=== PATIENT | female | born 1970 | race Caucasian/White ===

== ENCOUNTER 2018-04-12 12:10 | Day surgery (SDC) | payer OTHER ==
[2018-04-06 15:57] VITALS: BMI 45.1
[2018-04-12] MEDS ORDERED: MIDAZOLAM HCL 2 MG/2 ML SINGLE DOSE VIAL ONE (13:53)
[2018-04-12] MEDS ORDERED: PROPOFOL 20 ML ONE ×2 (13:53→13:54)
[2018-04-12] MEDS ORDERED: KETOROLAC TROMETHAMINE 30 MG/1 ML VIAL ONE (13:55)
[2018-04-12] MEDS ORDERED: DEXAMETHASONE SOD PHOSPHATE 4 MG/1 ML VIAL ONE (13:55)
[2018-04-12] MEDS ORDERED: ceFAZolin SODIUM 1 GM VIAL ONE (13:55)
[2018-04-12] MEDS ORDERED: ONDANSETRON 4 MG/2 ML VIAL ONE ×2 (13:55→15:12)
[2018-04-12] MEDS ORDERED: BUPIVACAINE HCL/PF 2.5 MG/ML - 30 ML VIAL IJ ONE (14:03)
[2018-04-12] MEDS ORDERED: LIDOCAINE HCL 2% (20ML MULTI-DOSE VIAL) NR ONE (14:03)
[2018-04-12] MEDS ORDERED: oxyCODONE HCL 5 MG TABLET PO PRN (15:11)
[2018-04-12] MEDS ORDERED: ONDANSETRON 4 MG/2 ML VIAL IVPUSH PRN (15:11)
[2018-04-12] MEDS ORDERED: LACTATED RINGERS SOLUTION 1,000 ML IV SCH (15:15)
[2018-04-12] MEDS ORDERED: PROMETHAZINE HCL 25 MG/1 ML VIAL ONE (15:43)
[2018-04-12] MEDS ORDERED: PROMETHAZINE HCL 25 MG/1 ML VIAL IVPUSH ONE (15:46)
[2018-04-12] MEDS ORDERED: PROMETHAZINE HCL 25 MG/1 ML VIAL IVPUSH PRN (15:47)
[2018-04-12 17:45] VITALS: TEMP 97.8
[2018-04-12 17:46] VITALS: BP 124/74; PULSE 65
--- NOTE | 2018-04-13 09:02 | OP ---
DATE OF OPERATION: 04/12/2018 PREOPERATIVE DIAGNOSIS: Right thumb ulnar collateral ligament tear. POSTOPERATIVE DIAGNOSIS: Right thumb ulnar collateral ligament tear. OPERATIVE PROCEDURE: Repair, right thumb ulnar collateral ligament tear. SURGEON: Duane Cross MD MELTING SUPERVISOR: MICHAEL Cortez ANESTHESIA: General. COMPLICATIONS: None. ESTIMATED BLOOD LOSS: Minimal. INDICATION FOR PROCEDURE: The patient is a 48-year-old female with the above finding indicated for operative treatment. Risks, benefits and alternatives were discussed with the patient at length. Proper informed consent was obtained. PROCEDURE: After proper identification of patient and correct operative site patient was brought to the operating room and placed supine on the table, prominences well padded. General anesthesia was provided by the anesthesiologist. Right upper extremity was prepped and draped in the usual sterile fashion. Well-padded tourniquet was placed over the sterile prep. Esmarch bandage to exsanguinate right upper extremity. The tourniquet was inflated to 250 mmHg. A curvilinear incision made over the thumb metacarpophalangeal joint on the ulnar aspect. Blunt dissection was performed down to the extensor mechanism and adductor aponeurosis. Neurovascular structures were identified and carefully protected. At this time a Stener lesion was noted. The adductor aponeurosis divided along its dorsal border and elevated off the radial ulnar aspect of the thumb metacarpophalangeal joint. The ulnar collateral ligament was found to be completely ruptured. The ends were freshened and a 3-0 FiberWire suture along with a SwiveLock anchor was used to repair the ligament down to the base of the thumb proximal phalanx. Using the FiberTape that was also on the SwiveLock anchor an internal brace reinforcement was placed by looping this back over the collateral ligament and inserting a 2nd SwiveLock anchor into the neck of the thumb metacarpal. The entire procedure provided excellent stability with good range of motion. The wound was irrigated in layers. Adductor aponeurosis was repaired. Skin was repaired in layers using 4-0 Vicryl and 4-0 Monocryl. Steri-Strips, sterile dressings were applied. Thumb spica splint was placed. Patient reversed from anesthesia and brought to the recovery room in stable condition. George Trevino, the restaurant assistant, was integral throughout the procedure. The procedure could not have been performed without a skilled operative restaurant assistant. DUANE CROSS M.D. [place]/[id number]
== END 2018-04-12 17:10 | disposition home or self-care (01) ==
LOC: FASU 12:10
PROVIDERS: ATTEND Orthopaedic Surgery Hand Surgery
PROC: 0MQ70ZZ Repair Right Hand Bursa and Ligament, Open Approach (ICD-10-PCS; principal; 2018-04-12 14:26)
DX: S63.641A Sprain of metacarpophalangeal joint of right thumb, initial encounter (principal); X58.XXXA Exposure to other specified factors, initial encounter; Y93.9 Activity, unspecified; Y92.9 Unspecified place or not applicable
CPT/HCPCS: 84703; 94760